=== PATIENT | female | born 1965 | race Caucasian/White ===

== ENCOUNTER 2020-07-13 17:50 | Emergency (ER) | payer SELFPAY ==
[2020-07-13] MEDS ORDERED: predniSONE 20 MG TAB ONE (18:38)
== END 2020-07-13 18:40 | disposition home or self-care (01) ==
LOC: MADERS 17:50
DX: M10.9 Gout, unspecified (principal); F17.210 Nicotine dependence, cigarettes, uncomplicated; I10 Essential (primary) hypertension; Z79.899 Other long term (current) drug therapy
CPT/HCPCS: 99283; J7512